=== PATIENT | male | born 1945 | race Caucasian/White ===

== ENCOUNTER 2020-07-11 05:05 | Inpatient (IN) | payer OTHER ==
[~2020-07-11] VITALS: Ht 185.4 cm; Wt 99.4 kg
--- NOTE | 2020-07-11 05:07 | NUR ---
PT BIBRA FROM [facility] C/O SOB. PER RA O2 SAT 85% +HEMATURIA NOTED. PT PLACED IN BED 8 ON POTATO LOADER AND PULSE OX. HR NOTED TO BE IN THE 130'S AFIB. RT AT BEDSIDE; RHONCHI HEARD UPON AUSCULTATION. PT PLACED ON SIMV 12,TV 450, 02 60, PEEP 5. PT HAS A JULIO PICC LINE, G TUBE, RECTAL TUBE, AND GARG CATH. NOTED HEMATURIA IN GARG CATH. AT BEDSIDE FOR EVAL, AWAITING PAULINO
--- NOTE | 2020-07-11 05:16 | NUR ---
PT GARG IRRIGATED, BLOOD CLOTS NOTED.
[2020-07-11] MEDS ORDERED: VANCOMYCIN 1 GM in IV D5W 250 ML IV ONE (05:30)
[2020-07-11] MEDS ORDERED: PIPERACILLIN /TAZOBACTAM 3.375 G in IV D5W 50 ML IV ONE (05:30)
[2020-07-11] MEDS ORDERED: DILTIAZEM HCL 50 MG IV IV ONE (05:30)
[2020-07-11] MEDS ORDERED: DILTIAZEM HCL 50 MG IV ONE (05:33)
--- NOTE | 2020-07-11 05:33 | NUR ---
TILE HELPER AT BEDSIDE FOR BLOOD WORK. UNABLE TO DRAW FROM PICC LINE.
[2020-07-11] MEDS ORDERED: VANCOMYCIN 1 GM VIAL ONE (05:35)
[2020-07-11] MEDS ORDERED: PIPERACILLIN /TAZOBACTAM 3.375 G VIAL IV ONE (05:35)
[2020-07-11 05:57] LABS: BASOPHILS # (AUTO) 0.1 /CMM (0.0-0.2); BASOPHILS % (AUTO) 0.7 % (0.0-2.0); EOSINOPHILS % (AUTO) 3.3 % (0.0-6.0); HEMATOCRIT 29 % (39-51); HEMOGLOBIN 9.2 g/dL (13.5-17.5); LYMPHOCYTES # (AUTO) 4.4 /CMM (0.8-4.8); LYMPHOCYTES % (AUTO) 24.2 % (20.0-44.0); MEAN CORPUSCULAR HGB CONC 32 g/dl (31.0-36.0); MEAN CORPUSCULAR VOLUME 89 fL (80-96); MONOCYTES # (AUTO) 1.1 /CMM (0.1-1.30); MONOCYTES % (AUTO) 6.2 % (2.0-12.0); NEUTROPHILS % (AUTO) 65.6 % (43.0-81.0); PLATELET COUNT (AUTO) 267 /CMM (150-450); RED BLOOD CELL COUNT(AUTO) 3.24 MIL/uL (4.5-6.0); WHITE BLOOD COUNT (AUTO) 18.3 K/uL (4.3-11.0)
--- NOTE | 2020-07-11 05:58 | NUR ---
LOYDAID SWABBED, SENT TO LAB.
[2020-07-11 06:08] LABS: CALCIUM, SERUM 9.3 mg/dL (8.5-10.1); CARBON DIOXIDE 34 mmol/L (21-32); CHLORIDE 102 mmol/L (98-107); CREATININE 0.8 mg/dL (0.6-1.3); GLUCOSE 184 mg/dL (74-106); POTASSIUM 3.5 mmol/L (3.5-5.1); SODIUM SERUM 143 mmol/L (136-145); UREA NITROGEN, BLOOD 20 mg/dL (7-18)
[2020-07-11 06:20] LABS: ALANINE AMINOTRANSFERASE 25 U/L (12-78); ALKALINE PHOSPHATASE 123 U/L (46-116); ASPARTATE AMINOTRANSFERASE 23 U/L (15-37); B-TYPE NATRIURETIC PEPTIDE 2895 PG/ML (0-125); BILIRUBIN,DIRECT 0.1 mg/dL (0.0-0.2); BILIRUBIN,TOTAL 0.4 mg/dL (0.2-1.0); TOTAL PROTEIN, SERUM 7.1 g/dL (6.4-8.2)
--- NOTE | 2020-07-11 06:31 | NUR ---
RT pt placed on mechanical vent with settings from facility. fio2 increased due to desaturation. julito villalobos 8. alarms on and audible. ambu bag at bedside. thick yellow, pink tinged secretions suctioned via trach. will endorse to oncoming shift.
--- NOTE | 2020-07-11 06:38 | NUR ---
ER MD AT BEDSIDE FOR EVAL. PT REMAINS ON AGRONOMY LOCATION MANAGER AND PULSE OX. HR DECREASE FROM 130'S TO 107.
--- NOTE | 2020-07-11 06:42 | NUR ---
GARG CATH IRRIGATED AGAIN, BRIGHT RED COLOR NOTED.
--- NOTE | 2020-07-11 06:55 | NUR ---
URINE SAMPLE COLLECTED, SENT TO LAB.
[2020-07-11] MEDS ORDERED: DEXTROSE 50%-WATER 50 ML DISP.SYRIN IV PRN ×2 (07:30→11:00)
[2020-07-11] MEDS ORDERED: MAGNESIUM HYDROXIDE 30 ML UDC PO PRN (07:30)
[2020-07-11] MEDS ORDERED: ACETAMINOPHEN 325 MG TABLET PO PRN ×2 (07:30→11:00)
[2020-07-11] MEDS ORDERED: MAG HYDROX/AL HYDROX/SIMETH 30 ML UDC PO PRN (07:30)
[2020-07-11] MEDS ORDERED: ONDANSETRON HCL/PF 4 MG/2 ML VIAL IVP PRN (07:30)
[2020-07-11] MEDS ORDERED: CLONIDINE HCL 0.1 MG TABLET PO PRN (07:30)
[2020-07-11] MEDS ORDERED: Z GUARD REMEDY 2 OZ OINT TP PRN (07:30)
[2020-07-11 07:35] LABS: ABG BASE EXCESS 5.7 mmol/L; ABG OXYGEN SATURATION 94.7 % (92.0-98.5); ABG PCO2 42.6 mmHg (35.0-45.0); ABG PH 7.465 (7.350-7.450); ABG PO2 78.4 mmHg (75.0-100.0); AaDO2 302.5 mmHg; COHb 0.3 % (0.5-1.5); MetHb 0.1 % (0.0-1.5); O2Hb 94.3 % (94.0-97.0); SITE, ABG Right Radial
[2020-07-11] MEDS ORDERED: OLME1TAB88 PO (07:55)
[2020-07-11] MEDS ORDERED: ROSU20TA32 PO (07:55)
[2020-07-11] MEDS ORDERED: CHOL200010 PO (07:55)
[2020-07-11] MEDS ORDERED: CARV25TA2 PO (07:55)
[2020-07-11] MEDS ORDERED: PANT40TA49 PO (07:55)
[2020-07-11] MEDS ORDERED: ALEN70TA80 PO (07:55)
[2020-07-11] MEDS ORDERED: METF-442 PO (07:55)
[2020-07-11] MEDS ORDERED: BENEP GT (08:11)
[2020-07-11] MEDS ORDERED: INSU100V39 SQ (08:11)
[2020-07-11] MEDS ORDERED: FLUD0.1T GT (08:11)
[2020-07-11] MEDS ORDERED: MIDO2.5T GT (08:11)
[2020-07-11] MEDS ORDERED: ACET325T53 GT (08:11)
[2020-07-11] MEDS ORDERED: ATOR80TA GT (08:11)
[2020-07-11] MEDS ORDERED: LACT1CAP25 PO (08:11)
[2020-07-11] MEDS ORDERED: NS C250O2 GT (08:11)
[2020-07-11] MEDS ORDERED: CLON1TAB12 GT (08:11)
[2020-07-11] MEDS ORDERED: CHLO473M3 MM (08:11)
[2020-07-11] MEDS ORDERED: ASCO500C17 GT (08:11)
[2020-07-11] MEDS ORDERED: INSU100V7 SQ (08:11)
[2020-07-11] MEDS ORDERED: METO-295 GT (08:11)
[2020-07-11] MEDS ORDERED: MULT-439 GT (08:11)
[2020-07-11] MEDS ORDERED: ALBU8.5H8 IH (08:11)
[2020-07-11] MEDS ORDERED: QUET50TA GT (08:11)
[2020-07-11] MEDS ORDERED: AMIO200T5 GT (08:11)
[2020-07-11] MEDS ORDERED: FURO-144 GT (08:11)
[2020-07-11 08:26] LABS: BILIRUBIN,URINE NEGATIVE (NEGATIVE); COLOR,URINE RED (YELLOW); LEUKOCYTE ESTERASE ,URINE MODERATE (NEGATIVE); NITRITE, URINE POSITIVE (NEGATIVE); PH,URINE 6.5 (5.0-8.0); PROTEIN,URINE >=300 mg/dl (NEGATIVE); UGLUCOSE NEGATIVE (NEGATIVE)
[2020-07-11 08:48] LABS: RBC,URINE TOO NUMEROUS TO COUN /HPF (0-2)
[2020-07-11 08:49] LABS: BACTERIA,URINE Rare /HPF (None Seen); SQUAMOUS EPITHELIAL CELL,UR Few /HPF (None Seen)
--- NOTE | 2020-07-11 08:53 | NUR ---
negative rapid covid result called by lab.
--- NOTE | 2020-07-11 09:22 | NUR ---
dr green talking to dr pedersen.
--- NOTE | 2020-07-11 09:44 | NUR ---
room 118-2
--- NOTE | 2020-07-11 09:51 | NUR ---
report given to Silvino YI for tricia
--- NOTE | 2020-07-11 10:02 | NUR ---
wheeled patient via gurney accompanied by RN, RT and emt in no distress. RN at bedside to assume care.
--- NOTE | 2020-07-11 10:10 | NUR ---
DIGITIZER NOTE RECEIVED REPORT FROM EMPLOYEE RELATIONS MANAGER JESUS. PATIENT IS IN BED WITH HOB AT SEMI FOWLERS POSITION. PATIENT IS AOX2. VENT/TRACH ARE IN PLACE AND PATIENT HAS NO SIGNS OF DISTRESS. CONTROLLED AFIB NOTED ON MONITOR. MEPILEX APPLIED TO SACRAL WOUND. JULIO MIDLINE IS PATENT, INTACT, AND HAS NO SIGNS OF INFILTRATION. BED IS LOCKED IN THE LOWEST POSITION, CALL JOSÉ WITHIN REACH, AND ALL HOSPITAL SAFETY PRECAUTIONS ARE BEING FOLLOWED. WILL CONTINUE TO MONITOR.
[2020-07-11] MEDS ORDERED: PIPERACILLIN /TAZOBACTAM 3.375 G in IV D5W 50 ML IV SCH (11:00)
[2020-07-11] MEDS ORDERED: INSULIN REGULAR, HUMAN 100 UNIT/ML 3 ML VIAL SQ PRN (11:00)
[2020-07-11 11:01] LABS: THYROID STIMULATING HORMONE 6.898 uIU/mL (0.358-3.74)
[2020-07-11 12:00] VITALS: BP 119/69
[2020-07-11] MEDS ORDERED: BLOOD SUGAR DIAGNOSTIC 1 EACH STRIP IN SCH (12:00)
[2020-07-11] MEDS ORDERED: ALBUTEROL FS 2.5 MG/0.5 ML VIAL.NEB NEB PRN (12:00)
[2020-07-11] MEDS: BLOOD SUGAR DIAGNOSTIC 1 EACH STRIP VI SCH ×4 (12:00→21:32)
[2020-07-11] MEDS ORDERED: PIPERACILLIN /TAZOBACTAM 3.375 G in IV D5W 100 ML IV SCH (12:00)
[2020-07-11] MEDS ORDERED: METOCLOPRAMIDE HCL 10 MG TABLET GT PRN (12:00)
[2020-07-11] MEDS: *INSULIN REGULAR(HUMULIN R)HUM 100 UNIT/ML VIAL SQ PRN ×3 (12:45→21:33)
[2020-07-11] MEDS: FLUDROCORTISONE 0.1 MG TABLET GT SCH (13:23)
[2020-07-11] MEDS: LACTOBACILLUS RHAMNOSUS GG 1 EACH CAP.SPRINK GT SCH (13:24)
[2020-07-11] MEDS: ZOSYN IVPB 3.375 G in IV D5W 50ml IV SCH ×3 (13:24→23:07)
[2020-07-11] MEDS: MULTIVIT W/MINERALS 1 TAB TABLET GT SCH (13:24)
[2020-07-11] MEDS: FUROSEMIDE 40 MG/4 ML VIAL IV SCH ×2 (13:24→17:06)
[2020-07-11] MEDS: AMIODARONE HCL 200 MG TABLET GT SCH ×2 (13:24→20:31)
[2020-07-11] MEDS: VANCOMYCIN 1 GM in IV D5W 250 ML IV SCH ×2 (14:46→21:32)
[2020-07-11] MEDS: VITAL AF 1.2 1,000 ML BOTTLE GT PRN (15:38)
[2020-07-11 16:00] VITALS: BP 122/68
[2020-07-11] MEDS: APIXABAN 5 MG TABLET PO SCH (17:00)
--- NOTE | 2020-07-11 17:07 | NUR ---
FILLER WIPER NOTE HELD ELIQUIS DUE TO HEMATURIA.
[2020-07-11 17:37] LABS: VENT MODE, BG SIMV 12 450 PS18 60% +5
--- NOTE | 2020-07-11 19:05 | NUR ---
RECEIVED PT ON BED AWAKE A/O X2 CAN ANSWER YES OR NO ABLE TO TELL NEEDS VIA NEEDS BOARDS AVAILABLE AT BEDSIDE, ON TRACH/VENT SETTING PER MD, FIO2 60% SPO2 97% NO ACUTE RESP DISTRESS NOTED, NO PAIN NOTED AT THIS TIME, TELE MONITOR READS CONTROLLED AFIB HR 82, HAVE GTUBE ON PLACE PLACEMNET CHECKED AND CLAMPED, HAVE GARG CATHETER WITH RED TINGED URINE DRAINING VIA GRAVITY MD IS AWARE, HAVE RECTAL TUBE ON PLACE PT HAVE JULIO MIDLINE C D I, PATENT AND FLUSHED, BED ON LOWEST POSITION AND LOCKED SIDE RAILS UP X2 CALL LIGHT WITHIN REACH WILL CONT TO MONITOR
--- NOTE | 2020-07-11 19:20 | NUR ---
RN CLOSING NOTE PATIENT IS IN BED WITH HOB AT SEMI FOWLERS POSITION. VENT/TRACH ARE IN PLACE WITH NO SIGNS OF LABORED BREATHING. SACRAL WOUND IS NOTED. GTUBE IN PLACE. GARG CATHETER AND RECTAL TUBE ARE IN PLACE. . JULIO MIDLINE IS PATENT, INTACT, AND HAS NO SIGNS OF INFILTRATION. BED IS LOCKED IN THE LOWEST POSITION, CALL JOSÉ WITHIN REACH, 3 GUARD RAILS RAISED, AND ALL HOSPITAL SAFETY PRECAUTIONS ARE BEING FOLLOWED. ENDORSED TO GRE INSTRUCTOR RN.
[2020-07-11 20:00] VITALS: BP 114/60
[2020-07-11] MEDS: MIDODRINE HCL (5MG) 5 MG TABLET GT SCH (20:32)
[2020-07-11] MEDS: ATORVASTATIN 40 MG TABLET GT SCH (21:32)
[2020-07-11] MEDS: INSULIN GLARGINE, 100 UNIT/ML CARTRIDGE SQ SCH (21:33)
[2020-07-11 22:38] LABS: BILIRUBIN,URINE NEGATIVE (NEGATIVE); COLOR,URINE RED (YELLOW); LEUKOCYTE ESTERASE ,URINE TRACE (NEGATIVE); NITRITE, URINE NEGATIVE (NEGATIVE); PROTEIN,URINE 30 mg/dl (NEGATIVE); UGLUCOSE NEGATIVE (NEGATIVE); UROBILINOGEN,URINE 0.2 EU/dL (0.2)
[2020-07-11 22:40] LABS: BACTERIA,URINE Few /HPF (None Seen); RBC,URINE TOO NUMEROUS TO COUN /HPF (0-2); SQUAMOUS EPITHELIAL CELL,UR Few /HPF (None Seen)
[2020-07-12] VITALS: BP 123/65
[2020-07-12] MEDS: clonazePAM 1 MG TABLET GT PRN ×2 (00:27→18:58)
[2020-07-12 04:00] VITALS: BP 108/58
[2020-07-12] MEDS: ZOSYN IVPB 3.375 G in IV D5W 50ml IV SCH ×4 (05:16→23:32)
[2020-07-12 06:00] LABS: BASOPHILS # (AUTO) 0.1 /CMM (0.0-0.2); BASOPHILS % (AUTO) 1.1 % (0.0-2.0); EOSINOPHILS % (AUTO) 5.6 % (0.0-6.0); HEMATOCRIT 25 % (39-51); HEMOGLOBIN 8.1 g/dL (13.5-17.5); LYMPHOCYTES # (AUTO) 1.8 /CMM (0.8-4.8); LYMPHOCYTES % (AUTO) 17.1 % (20.0-44.0); MEAN CORPUSCULAR HGB CONC 33 g/dl (31.0-36.0); MEAN CORPUSCULAR VOLUME 90 fL (80-96); MONOCYTES # (AUTO) 0.7 /CMM (0.1-1.30); MONOCYTES % (AUTO) 7.1 % (2.0-12.0); NEUTROPHILS # (AUTO) 7.1 /CMM (1.8-8.9); NEUTROPHILS % (AUTO) 69.1 % (43.0-81.0); PLATELET COUNT (AUTO) 211 /CMM (150-450); WHITE BLOOD COUNT (AUTO) 10.2 K/uL (4.3-11.0)
[2020-07-12 06:34] LABS: CALCIUM, SERUM 9.4 mg/dL (8.5-10.1); CREATININE 0.8 mg/dL (0.6-1.3); MAGNESIUM 1.8 mg/dL (1.8-2.4); PHOSPHORUS 2.9 mg/dL (2.5-4.9)
--- NOTE | 2020-07-12 06:54 | NUR ---
PT ON BED ASLEEP EASY TO WAKE NO SIGN AND SYMPTOMS OF DISTRESS NO PAIN COMPLAINED STILL ON TRACH VENT SETTING PER MD FIO2 60% SPO2 98% NO SIGNIFICANT CHANGES ON CONDITION NOTED, HEMATURIA ON URINE STILL NOTED, ALL NEEDS ATTENDED WOUND TREATMENT DONE, STILL ON TELE WITH READING AFIB CONTROLLED 70'S BED ON LOWEST POSITION AND LOCKED SIDE RAILS UP X2 CALL LIGHT WITHIN REACH, VANCOMYCIN NOTE YET GIVEN DUE TO VANCOMYCIN TROUGH RESULT NOT YET RELEASE WILL ENDORSED TO AM SHIFT NURSE
--- NOTE | 2020-07-12 07:30 | NUR ---
RN OPENING NOTE RECEIVED PATIENT IN BED WITH HOB AT SEMI FOWLERS POSITION. PATIENT IS CURRENTLY AOX2. VENT/TRACH IS APPLIED WITH APPROPRIATE SETTINGS WITH NO SIGNS OF LABORED BREATHING. CONTROLLED IS NOTED ON THE MONITOR. GTUBE IS IN PLACE RUNNING APPROPRIATE FEEDING AT THE INTENDED RATE. SACRAL WOUND IS NOTED WITH DRESSING APPLIED. JULIO PICC IS PATENT, INTACT, AND HAS NO SIGNS OF INFILTRATION. GARG CATHETER AND RECTAL TUBE ARE IN PLACE. BED IS LOCKED IN THE LOWEST POSITION, CALL JOSÉ WITHIN REACH, 3 GUARD RAILS RAISED AND ALL HOSPITAL SAFETY PRECAUTIONS ARE BEING FOLLOWED. WILL CONTINUE TO MONITOR THROUGHOUT SHIFT.
[2020-07-12] MEDS: INSULIN REGULAR, HUMAN 100 UNIT/ML 3 ML VIAL SQ PRN ×2 (07:33→11:22)
[2020-07-12] MEDS: VANCOMYCIN 1 GM in IV D5W 250 ML IV SCH ×3 (07:35→23:32)
--- NOTE | 2020-07-12 07:35 | NUR ---
PLANE TENDER NOTE SPOKE WITH PHARMACY IN REGARDS TO VANCO TROUGH OF 20. ADVISED TO HOLD. HOLDING MEDICATION.
--- NOTE | 2020-07-12 07:45 | NUR ---
REGIONAL CONSTRUCTION MANAGER NOTE DVT STOCKINGS APPLIED. WILL CONTINUE TO MONITOR.
[2020-07-12] MEDS: BLOOD SUGAR DIAGNOSTIC 1 EACH STRIP VI SCH ×4 (07:48→22:03)
[2020-07-12 08:00] VITALS: BP 129/63
[2020-07-12] MEDS: MULTIVIT W/MINERALS 1 TAB TABLET GT SCH (08:10)
[2020-07-12] MEDS: AMIODARONE HCL 200 MG TABLET GT SCH ×2 (08:11→20:31)
[2020-07-12] MEDS: MIDODRINE HCL (5MG) 5 MG TABLET GT SCH ×2 (08:12→20:31)
[2020-07-12] MEDS: LACTOBACILLUS RHAMNOSUS GG 1 EACH CAP.SPRINK GT SCH (08:12)
[2020-07-12] MEDS: ASCORBIC ACID 500 MG TABLET GT SCH (08:13)
[2020-07-12] MEDS: APIXABAN 5 MG TABLET PO SCH (08:13)
[2020-07-12] MEDS: FUROSEMIDE 40 MG/4 ML VIAL IV SCH ×2 (08:13→17:25)
--- NOTE | 2020-07-12 08:15 | NUR ---
DRUG DEPARTMENT WORKER NOTE MIDODRINE HELD DUE TO SBP OF 129. ELIQUIS HELD DUE TO HEMATURIA. WILL CONTINUE TO MONITOR.
[2020-07-12] MEDS: FLUDROCORTISONE 0.1 MG TABLET GT SCH (08:16)
[2020-07-12] MEDS: PROSOURCE / PROSTAT (PYXIS) 30 ML UDC GT SCH (08:33)
[2020-07-12] MEDS ORDERED: FUROSEMIDE 40 MG TABLET GT SCH (09:00)
[2020-07-12] MEDS ORDERED: POTASSIUM CHLORIDE 20 MEQ TAB.PRT.SR PO SCH (10:00)
[2020-07-12] MEDS: POTASSIUM CHLORIDE 20 MEQ POWDER PACKET GT SCH ×2 (10:52→12:15)
--- NOTE | 2020-07-12 11:47 | NUR ---
BOOKS SALESPERSON NOTE INCREASED VITAL 1.2 TO 65ML/HR PER MD ORDER. WILL CONTINUE TO MONITOR.
[2020-07-12 12:00] VITALS: BP 124/62
--- NOTE | 2020-07-12 12:10 | NUR ---
FULL STACK ENGINEER NOTE SPOKE TO PHARMACY IN REGARDS TO NEW VANCO ORDER WITH TROUGH OF 20. OKAY TO ADMINISTER.
--- NOTE | 2020-07-12 13:15 | NUR ---
BRIDGE WORKER NOTE DR. VILLA NOTIFIED OF CDIFF RESULT. VANCOMYCIN VIA GTUBE HAS BEEN ORDERED.
[2020-07-12 16:00] VITALS: BP 131/63
[2020-07-12] MEDS: VANCOMYCIN HCL 125 MG/2.5 ML ORAL.SUSP GT SCH ×2 (17:25→23:31)
[2020-07-12] MEDS: *INSULIN REGULAR(HUMULIN R)HUM 100 UNIT/ML VIAL SQ PRN ×2 (17:27→22:04)
--- NOTE | 2020-07-12 18:36 | NUR ---
RN CLOSING NOTE PATIENT IS IN BED WITH HOB AT SEMI FOWLERS POSITION. PATIENT IS AOX3 AND ABLE TO MOUTH WORDS. VENT/TRACH ARE IN PLACE WITH NO SIGNS OF LABORED BREATHING. MONITOR SHOWS CONTROLLED AFIB. RECTAL TUBE AND GARG CATHETER ARE IN PLACE. HEMATURIA NOTED. SACRAL DTI HAS CLEAN DRESSING APPLIED. GTUBE IS IN PLACE WITH APPROPRIATE FEEDING RUNNING. JULIO PICC IS PATENT, INTACT, AND HAS NO SIGNS OF INFILTRATION. BED IS LOCKED IN THE LOWEST POSITION, CALL JOSÉ WITHIN REACH, 3 GUARD RAILS RAISED, AND ALL HOSPITAL SAFETY PRECAUTIONS ARE BEING FOLLOWED. WILL ENDORSE TO PUBLIC SERVICES ASSISTANT RN.
--- NOTE | 2020-07-12 19:36 | NUR ---
RN NOTES PATIENT IN BED HOB ELEVATED. A/OX3, ABLE TO MOUTH WORDS. TELE MONITOR ON, A-FIB CONTROLLED. RECTAL TUBE INTACT. GARG CATH INTACT DRAINING HEMATURIA TO GRAVITY. WITH G-TUBE, RUNNING VITAL @65ML/HR. JULIO PATENT AND INTACT, FLUSHED WITH NS. BED LOCKED AND IN LOWEST POSITION. SAFETY MEASURES IN PLACE. CALL LIGHT WITHIN REACH. WILL CONTINUE TO MONITOR.
[2020-07-12 20:00] VITALS: BP 124/71
[2020-07-12] MEDS: HYDROCODONE/APAP 5/325MG TABLET PO PRN (20:26)
[2020-07-12] MEDS: ATORVASTATIN 40 MG TABLET GT SCH (22:03)
[2020-07-12] MEDS: INSULIN GLARGINE, 100 UNIT/ML CARTRIDGE SQ SCH (22:05)
[2020-07-13] VITALS (10 sets, daily range): BP systolic 104–154; BP diastolic 58–94
[2020-07-13] MEDS: HYDROCODONE/APAP 5/325MG TABLET PO PRN (00:46)
[2020-07-13] MEDS: VITAL AF 1.2 1,000 ML BOTTLE GT PRN (04:47)
[2020-07-13] MEDS: VANCOMYCIN HCL 125 MG/2.5 ML ORAL.SUSP GT SCH ×4 (05:35→23:05)
[2020-07-13] MEDS: ZOSYN IVPB 3.375 G in IV D5W 50ml IV SCH ×4 (05:35→23:06)
[2020-07-13 05:57] LABS: BASOPHILS # (AUTO) 0.1 /CMM (0.0-0.2); BASOPHILS % (AUTO) 0.9 % (0.0-2.0); EOSINOPHILS % (AUTO) 7.1 % (0.0-6.0); HEMATOCRIT 23 % (39-51); HEMOGLOBIN 7.7 g/dL (13.5-17.5); LYMPHOCYTES # (AUTO) 1.4 /CMM (0.8-4.8); LYMPHOCYTES % (AUTO) 15.3 % (20.0-44.0); MEAN CORPUSCULAR HGB CONC 33 g/dl (31.0-36.0); MEAN CORPUSCULAR VOLUME 89 fL (80-96); MONOCYTES # (AUTO) 0.7 /CMM (0.1-1.30); NEUTROPHILS # (AUTO) 6.2 /CMM (1.8-8.9); NEUTROPHILS % (AUTO) 68.7 % (43.0-81.0); PLATELET COUNT (AUTO) 206 /CMM (150-450); RED BLOOD CELL COUNT(AUTO) 2.62 MIL/uL (4.5-6.0)
[2020-07-13] MEDS: clonazePAM 1 MG TABLET GT PRN (06:58)
--- NOTE | 2020-07-13 07:45 | NUR ---
RN OPENING NOTE PATIENT IS IN BED WITH HOB AT SEMI FOWLERS POSITION. PATIENT IS AOX3 AND MOUTHS WORDS. VENT/TRACH ARE IN PLACE. AFIB CONTROLLED IS NOTED ON MONITOR. GARG CATHETER AND RECTAL TUBE ARE IN PLACE. SACRAL DTI NOTED. GTUBE IS IN PLACE WITH APPROPRIATE FEEDING RUNNING. JULIO PICC LINE IS PATENT, INTACT, AND HAS NO SIGNS OF INFILTRATION. BED IS LOCKED IN THE LOWEST POSITION, CALL JOSÉ WITHIN REACH, 3 GUARD RAILS RAISED, AND ALL HOSPITAL SAFETY PRECAUTIONS ARE BEING FOLLOWED. WILL CONTINUE TO MONITOR THROUGHOUT SHIFT.
--- NOTE | 2020-07-13 07:48 | NUR ---
RN NOTES PATIENT IN BED HOB ELEVATED. A/OX3, ABLE TO MOUTH WORDS. TELE MONITOR ON, A-FIB CONTROLLED. RECTAL TUBE INTACT. GARG CATH INTACT DRAINING HEMATURIA TO GRAVITY 1350 CC OUTPUT. WITH G-TUBE, RUNNING VITAL @65ML/HR. JULIO PATENT AND INTACT, FLUSHED WITH NS. BED LOCKED AND IN LOWEST POSITION. SAFETY MEASURES IN PLACE. CALL LIGHT WITHIN REACH. ENDORSED TO ONCOMING SHIFT.
[2020-07-13] MEDS: INSULIN REGULAR, HUMAN 100 UNIT/ML 3 ML VIAL SQ PRN ×4 (07:50→23:47)
[2020-07-13] MEDS: BLOOD SUGAR DIAGNOSTIC 1 EACH STRIP VI SCH (07:54)
[2020-07-13] MEDS: MULTIVIT W/MINERALS 1 TAB TABLET GT SCH (08:06)
[2020-07-13] MEDS: LACTOBACILLUS RHAMNOSUS GG 1 EACH CAP.SPRINK GT SCH (08:06)
[2020-07-13] MEDS: FLUDROCORTISONE 0.1 MG TABLET GT SCH (08:06)
[2020-07-13] MEDS: ASCORBIC ACID 500 MG TABLET GT SCH (08:06)
[2020-07-13] MEDS: FUROSEMIDE 40 MG/4 ML VIAL IV SCH ×2 (08:07→16:14)
[2020-07-13] MEDS: MIDODRINE HCL (5MG) 5 MG TABLET GT SCH (08:32)
[2020-07-13] MEDS: AMIODARONE HCL 200 MG TABLET GT SCH ×2 (08:32→20:51)
--- NOTE | 2020-07-13 08:33 | NUR ---
HYDRAULIC REPAIRER NOTE MIDODRINE HELD FOR BP OF 154/94
[2020-07-13] MEDS: PROSOURCE / PROSTAT (PYXIS) 30 ML UDC GT SCH (08:40)
[2020-07-13] MEDS ORDERED: ALPRAZOLAM 0.25 MG TABLET GT PRN (09:00)
--- NOTE | 2020-07-13 09:00 | NUR ---
MANAGER UNDERWRITING NOTE DOCTOR ALLEN ADVISED TO SWITCH ACCU CHECK TO Q6H. WILL PLACE ORDER.
--- NOTE | 2020-07-13 09:40 | NUR ---
RT Pt changed to Shiley 8 XLT Distal cuffed per Dr. Alexandrea hodgson. Equal bilateral breathe sounds and chest rise noted. No SOB or respiratory distress noted. Addendum: 07/13/20 at 1019 by ROQUE RUST RT Amended: Links added.
--- NOTE | 2020-07-13 11:18 | NUR ---
WOUND CARE CONSULT: REVIEWED CHART, NURSING DOCUMENTATION AND PHOTOS WHICH INDICATE NECROTIC SACRAL PRESSURE ULCER, PRESENT ON ADMISSION. RECOMMEND SURGICAL CONSULT. DR SYDNEY VILLAGRAN NOTIFIED OF CONSULT REQUEST. PT IS ON SEGUNDO ISOFLEX LOW AIRLOSS BED. RECOMMENDATIONS MADE FOR SKIN PROTECTION AND WOUND CARE. DISCUSSED WITH NURSING STAFF. MD IN AGREEMENT WITH PLAN OF CARE.
[2020-07-13 12:43] LABS: CALCIUM, SERUM 8.4 mg/dL (8.5-10.1); CREATININE 0.7 mg/dL (0.6-1.3); POTASSIUM 3.2 mmol/L (3.5-5.1)
[2020-07-13] MEDS: DAKINS QUARTER STRENGTH (0.125%) 480 ML BOTTLE TOP SCH (13:18)
[2020-07-13] MEDS ORDERED: IOHEXOL-350 100 ML VIAL IV ONE (13:38)
[2020-07-13] MEDS ORDERED: IV NS 0.9% 250 ML IV ONE (13:39)
[2020-07-13] MEDS ORDERED: BLOOD SUGAR DIAGNOSTIC 1 EACH STRIP IN SCH ×2 (14:00)
--- NOTE | 2020-07-13 14:15 | NUR ---
CHAIR INSPECTOR NOTE NOTIFIED DR. VILLA OF AORTIC ANEURISM AND AORTIC DISECTION FOUND ON PULMONARY ANGIOGRAM.
[2020-07-13] MEDS ORDERED: FUROSEMIDE 40 MG/4 ML VIAL IV ONE (16:00)
[2020-07-13] MEDS ORDERED: DEXTROSE 50%-WATER 50 ML DISP.SYRIN IV PRN (16:00)
[2020-07-13] MEDS: POTASSIUM CL. PREMIX PERIPHER. 50 ML IV SCH ×2 (16:13→17:14)
[2020-07-13] MEDS: ENOXAPARIN SODIUM 100 MG/ML DISP.SYRIN SQ SCH (17:15)
[2020-07-13] MEDS: BLOOD SUGAR DIAGNOSTIC 1 EACH STRIP IN SCH ×2 (17:36→23:05)
--- NOTE | 2020-07-13 19:03 | NUR ---
RN CLOSING NOTE PATIENT IS IN BED, CLEAN, WITH HOB AT SEMI FOWLERS POSITION. PATIENT IS AOX3 AND MOUTHS WORDS. VENT/TRACH ARE IN PLACE. AFIB CONTROLLED IS NOTED ON MONITOR. GARG CATHETER AND RECTAL TUBE ARE IN PLACE. SACRAL DTI NOTED WITH APPROPRIATE DRESSING.. GTUBE IS IN PLACE WITH APPROPRIATE FEEDING RUNNING. JULIO PICC LINE IS PATENT, INTACT, AND HAS NO SIGNS OF INFILTRATION. BED IS LOCKED IN THE LOWEST POSITION, CALL JOSÉ WITHIN REACH, 3 GUARD RAILS RAISED, AND ALL HOSPITAL SAFETY PRECAUTIONS ARE BEING FOLLOWED. WILL ENDORSE TO REPORT CHECKER RN.
--- NOTE | 2020-07-13 19:35 | NUR ---
RN OPENING NOTES RECEIVED PT IN BED. A/O X3, MOUTHS WORDS. ABLE TO MAKE NEEDS KNOWN, USES COMMUNICATION SHEET. TRACH TO VENT. SHILEY 8 XLT, AC 12 TV 450 FIO2 40% PEEP 5. TOLERATING WELL SATURATION IS 97% AT THIS TIME. NO SOB OR RESP DISTRESS NOTED. ON TELE MONITORING PT PRESENTS WITH AFIB CONTROLLED, BASELINE TO PT. HR IS 85 AT THIS TIME. PT IV SITE, FLUSHED. PT HAS GTUBE RUNNING AT 65CC/HR. AUSCULTATED FOR PLACEMENT. 0 RESIDUAL NOTED. GT FLUSHED. PT HAS GARG CATH DRAINING TO GRAVITY. PINK TINGED NOTED. ISO PRECAUTIONS IN PLACE FOR R/O COVID. NEEDS ATTENDED. NO S/S OF PAIN. SAFETY MEASURES IN PLACE. HOB ELEVATED. BED LOCKED IN LOWEST POSITION, SIDE RAILS UP X2. CALL LIGHT WITHIN REACH. WILL CONT TO CLOSELY MONITOR.
[2020-07-13] MEDS: ATORVASTATIN 40 MG TABLET GT SCH (22:38)
[2020-07-13] MEDS: INSULIN GLARGINE, 100 UNIT/ML CARTRIDGE SQ SCH (23:48)
[2020-07-13] MEDS: ZOLPIDEM TARTRATE 5 MG TABLET GT PRN (23:55)
[2020-07-14] VITALS (8 sets, daily range): BP systolic 113–128; BP diastolic 57–79
[2020-07-14 05:56] LABS: CALCIUM, SERUM 8.9 mg/dL (8.5-10.1); CREATININE 0.7 mg/dL (0.6-1.3)
[2020-07-14] MEDS: BLOOD SUGAR DIAGNOSTIC 1 EACH STRIP IN SCH ×4 (06:14→23:33)
[2020-07-14] MEDS: clonazePAM 1 MG TABLET GT PRN (06:15)
[2020-07-14] MEDS: VANCOMYCIN HCL 125 MG/2.5 ML ORAL.SUSP GT SCH ×4 (06:16→23:39)
[2020-07-14] MEDS: ZOSYN IVPB 3.375 G in IV D5W 50ml IV SCH ×4 (06:16→23:56)
--- NOTE | 2020-07-14 07:30 | NUR ---
RN OPENING NOTES PT IN BED. A/O X3, MOUTHS WORDS. USES COMMUNICATION SHEET. TRACH TO VENT. SHILEY 8 XLT, AC 12 TV 450 FIO2 40% PEEP 5. TOLERATING WELL SATURATION IS 97% AT THIS TIME. NO SOB OR RESP DISTRESS NOTED. PT IV SITE INTACT AND FLUSHED. PT HAS G-TUBE RUNNING AT 65 ML/HR. AUSCULTATED FOR PLACEMENT. 20 RESIDUAL NOTED. GT FLUSHED. PT HAS GARG CATH DRAINING TO GRAVITY. BLOOD IN URINE NOTED. NOTIFIED AND GAVE OK TO CONTINUE LOVENOX DAILY. ISO PRECAUTIONS IN PLACE FOR R/O COVID. SAFETY PRECAUTIONS IMPLEMENTED, BED LOCKED IN LOWEST POSITION, SIDE RAILS UP X2, CALL LIGHT WITHIN REACH. WILL CONTINUE TO MONITOR AND PROVIDE CARE THROUGHOUT SHIFT.
--- NOTE | 2020-07-14 07:38 | NUR ---
RN CLOSING NOTES NO CHANGE IN PT CONDITION. STILL ON SAME VENT SETTINGS, AT THIS TIME. NO SOB OR RESP DISTRESS NOTED. UPON IV SITE NO S/S OF INFILTRATION AT THIS TIME. PT RECTAL TUBE WAS OUT OF PLACE, LEAKING, NEW TUBE PLACED. WOUND TX DONE ORDERED. BED BATH DONE. PT SUCTION ORALLY AND TRACH. NEEDS ATTENDED. NO S/S OF PAIN FLACC SCALE UTILIZED. SAFETY MEASURES IN PLACE. HOB ELEVATED. BED LOCKED IN LOWEST POSITION, SIDE RAILS UP X2. CALL LIGHT WITHIN REACH. WILL CONT TO CLOSELY MONITOR.
[2020-07-14 08:50] LABS: BASOPHILS # (AUTO) 0.1 /CMM (0.0-0.2); BASOPHILS % (AUTO) 1.1 % (0.0-2.0); EOSINOPHILS % (AUTO) 5.2 % (0.0-6.0); HEMATOCRIT 25 % (39-51); HEMOGLOBIN 8.2 g/dL (13.5-17.5); LYMPHOCYTES # (AUTO) 1.4 /CMM (0.8-4.8); LYMPHOCYTES % (AUTO) 15.9 % (20.0-44.0); MEAN CORPUSCULAR HGB CONC 33 g/dl (31.0-36.0); MEAN CORPUSCULAR VOLUME 90 fL (80-96); MONOCYTES # (AUTO) 0.6 /CMM (0.1-1.30); MONOCYTES % (AUTO) 6.9 % (2.0-12.0); NEUTROPHILS # (AUTO) 6.3 /CMM (1.8-8.9); NEUTROPHILS % (AUTO) 70.9 % (43.0-81.0); PLATELET COUNT (AUTO) 193 /CMM (150-450); RED BLOOD CELL COUNT(AUTO) 2.78 MIL/uL (4.5-6.0); WHITE BLOOD COUNT (AUTO) 8.9 K/uL (4.3-11.0)
[2020-07-14] MEDS: AMIODARONE HCL 200 MG TABLET GT SCH ×2 (09:18→20:29)
[2020-07-14] MEDS: LACTOBACILLUS RHAMNOSUS GG 1 EACH CAP.SPRINK GT SCH (09:18)
[2020-07-14] MEDS: MULTIVIT W/MINERALS 1 TAB TABLET GT SCH (09:19)
[2020-07-14] MEDS: FUROSEMIDE 40 MG/4 ML VIAL IV SCH ×2 (09:19→17:38)
[2020-07-14] MEDS: ASCORBIC ACID 500 MG TABLET GT SCH (09:19)
[2020-07-14] MEDS: PROSOURCE / PROSTAT (PYXIS) 30 ML UDC GT SCH (09:20)
[2020-07-14] MEDS: ENOXAPARIN SODIUM 100 MG/ML DISP.SYRIN SQ SCH ×3 (09:31→20:39)
[2020-07-14] MEDS: DAKINS QUARTER STRENGTH (0.125%) 480 ML BOTTLE TOP SCH (09:32)
[2020-07-14] MEDS: POTASSIUM CHLORIDE 20 MEQ TAB.PRT.SR PO SCH ×2 (11:21→11:40)
[2020-07-14] MEDS: INSULIN REGULAR, HUMAN 100 UNIT/ML 3 ML VIAL SQ PRN ×2 (12:19→23:35)
--- NOTE | 2020-07-14 19:07 | NUR ---
RN CLOSING NOTES PT IN BED. A/O X3, MOUTHS WORDS. USES COMMUNICATION SHEET. TRACH TO VENT. SHILEY 8 XLT, AC 12 TV 450 FIO2 40% PEEP 5. TOLERATING WELL SATURATION IS 97% AT THIS TIME. NO SOB OR RESP DISTRESS NOTED. PT IV SITE INTACT AND FLUSHED. PT HAS G-TUBE RUNNING AT 65 ML/HR. AUSCULTATED FOR PLACEMENT. 20 RESIDUAL NOTED. GT FLUSHED. PT HAS GARG CATH DRAINING TO GRAVITY. BLOOD IN URINE NOTED. NOTIFIED AND GAVE OK TO CONTINUE LOVENOX DAILY. ISO PRECAUTIONS IN PLACE FOR R/O COVID. SAFETY PRECAUTIONS IMPLEMENTED, BED LOCKED IN LOWEST POSITION, SIDE RAILS UP X2, CALL LIGHT WITHIN REACH. WILL ENDORSE CARE TO UPCOMING SHIFT.
--- NOTE | 2020-07-14 19:40 | NUR ---
SENIOR SOFTWARE TESTER OPENING NOTES PT IN BED, A/O X3, MOUTHS WORDS, ON MECHANICAL VENT WITH TRACH, TOLERATING SETTINGS WELL, 02> 97% AT THIS TIME, NO SOB/RESP DISTRESS NOTED, IV SITE PATENT AND INTACT, GT IN PLACE, G-TUBE FEEDING RUNNING AT 65 ML/HR, MINIMAL RESIDUAL NOTED, PLACEMENT CHECKED, GARG CATH DRAINING TO GRAVITY, HEMATURIA NOTED, MD AWARE, OK TO CONTINUE LOVENOX DAILY ACCORDING TO PRIOR NURSE, ALL PRECAUTIONS IN PLACE, BED LOCKED IN LOWEST POSITION, SIDE RAILS UP X2, CALL LIGHT WITHIN REACH, WILL CONTINUE TO MONITOR CLOSELY.
[2020-07-14] MEDS: ATORVASTATIN 40 MG TABLET GT SCH (21:33)
[2020-07-14] MEDS: ZOLPIDEM TARTRATE 5 MG TABLET GT PRN (22:18)
[2020-07-14] MEDS: INSULIN GLARGINE, 100 UNIT/ML CARTRIDGE SQ SCH (22:26)
[2020-07-15] VITALS: BP 116/64
[2020-07-15 04:00] VITALS: BP 104/63
[2020-07-15] MEDS: VITAL AF 1.2 1,000 ML BOTTLE GT PRN (05:07)
[2020-07-15] MEDS: VANCOMYCIN HCL 125 MG/2.5 ML ORAL.SUSP GT SCH ×4 (05:07→23:05)
[2020-07-15] MEDS: ZOSYN IVPB 3.375 G in IV D5W 50ml IV SCH ×4 (06:04→23:05)
[2020-07-15] MEDS: BLOOD SUGAR DIAGNOSTIC 1 EACH STRIP IN SCH ×4 (06:04→23:18)
[2020-07-15] MEDS: INSULIN REGULAR, HUMAN 100 UNIT/ML 3 ML VIAL SQ PRN ×3 (06:05→18:42)
[2020-07-15 06:36] LABS: BASOPHILS # (AUTO) 0.1 /CMM (0.0-0.2); BASOPHILS % (AUTO) 1.1 % (0.0-2.0); HEMATOCRIT 26 % (39-51); HEMOGLOBIN 8.6 g/dL (13.5-17.5); LYMPHOCYTES # (AUTO) 1.7 /CMM (0.8-4.8); MEAN CORPUSCULAR HGB CONC 33 g/dl (31.0-36.0); MEAN CORPUSCULAR VOLUME 89 fL (80-96); MONOCYTES # (AUTO) 0.6 /CMM (0.1-1.30); MONOCYTES % (AUTO) 6.7 % (2.0-12.0); NEUTROPHILS # (AUTO) 6.6 /CMM (1.8-8.9); NEUTROPHILS % (AUTO) 69.2 % (43.0-81.0); PLATELET COUNT (AUTO) 228 /CMM (150-450); RED BLOOD CELL COUNT(AUTO) 2.92 MIL/uL (4.5-6.0); WHITE BLOOD COUNT (AUTO) 9.6 K/uL (4.3-11.0)
--- NOTE | 2020-07-15 06:55 | NUR ---
FOOD CASHIER CLOSING NOTES PATIENT IN BED, A/O X3, ON MECHANICAL VENT WITH TRACH, TOLERATING SETTINGS WELL, 02> 96% DURING THE NIGHT, NO SOB/RESP DISTRESS DURING THE NIGHT, GT IN PLACE, G-TUBE FEEDING STARTED AGAIN AT 0400, GARG CATH IN PLACED, DRAINING TO GRAVITY, CONTINUE WITH HEMATURIA, DR VILLA AWARE, WILL HAVE DEBRIDEMENT OF SACRAL WOUND TOMORROW, ALL PRECAUTIONS IN PLACE, BED LOCKED IN LOWEST POSITION, SIDE RAILS UP X2, CALL LIGHT WITHIN REACH, WILL ENDORSE CONTINUITY OF CARE TO ONCOMING NURSE.
--- NOTE | 2020-07-15 07:30 | NUR ---
CASE FILLER OPENING NOTES PT IN BED, A/O X3, MOUTHS WORDS, ON MECHANICAL VENT WITH TRACH, TOLERATING SETTINGS WELL, SP02 98%, NO SOB/RESP DISTRESS NOTE. JULIO PICC LINE SL, FLUSHED X2 EACH PIGTAIL IT WAS DIFFICULT FIRST TIME AROUND , IS PATENT WITH NO SIGNS OF INFECTION, STARTED NS TKO. GT PATENT, G-TUBE FEEDING RUNNING AT 65 ML/HR, 30ML RESIDUAL NOTED, POSITIVE PLACEMENT CHECKED. GARG CATH DRAINING TO GRAVITY, HEMATURIA NOTED, DR VILLA AWARE. OK TO CONTINUE LOVENOX DAILY ACCORDING TO PRIOR NURSE, WILL CONFIRM WITH MD. PT FLEXISEAL LINTACT AND DRAINING FECES TO GRAVITY. ALL SAFETY PRECAUTIONS IN PLACE. WILL CONTINUE TO MONITOR CLOSELY.
[2020-07-15 07:41] LABS: CALCIUM, SERUM 8.8 mg/dL (8.5-10.1); CREATININE 0.7 mg/dL (0.6-1.3); POTASSIUM 3.1 mmol/L (3.5-5.1)
[2020-07-15 08:00] VITALS: BP 101/54
[2020-07-15] MEDS: LACTOBACILLUS RHAMNOSUS GG 1 EACH CAP.SPRINK GT SCH (09:00)
[2020-07-15] MEDS: MULTIVIT W/MINERALS 1 TAB TABLET GT SCH (09:00)
[2020-07-15] MEDS: ENOXAPARIN SODIUM 100 MG/ML DISP.SYRIN SQ SCH ×2 (09:00→09:03)
[2020-07-15] MEDS: FUROSEMIDE 40 MG/4 ML VIAL IV SCH (09:02)
[2020-07-15] MEDS: AMIODARONE HCL 200 MG TABLET GT SCH (09:02)
[2020-07-15] MEDS: ASCORBIC ACID 500 MG TABLET GT SCH (09:02)
[2020-07-15] MEDS: DAKINS QUARTER STRENGTH (0.125%) 480 ML BOTTLE TOP SCH (09:04)
[2020-07-15] MEDS: PROSOURCE / PROSTAT (PYXIS) 30 ML UDC GT SCH ×4 (09:05→17:00)
--- NOTE | 2020-07-15 09:14 | NUR ---
RN NOTE PER DR VILLA, HOLD LOVENOX D/T HEMATURIA. WILL CHANGE TO ELIQUIS
[2020-07-15] MEDS ORDERED: APIXABAN 5 MG TABLET PO SCH (09:30)
[2020-07-15] MEDS ORDERED: POTASSIUM CHLORIDE 20 MEQ TAB.PRT.SR PO ONE (09:30)
--- NOTE | 2020-07-15 09:42 | NUR ---
RN NOTE PER DR VILLA, D/C GARG CATH ONCE HEMATURIA HAS IMPROVED. PINK URINE WARRANTS IMPROVEMENT AND D/C OF GARG CATH
--- NOTE | 2020-07-15 10:00 | NUR ---
RN NOTE PER DR VILLA, JUAN R HINKLE, PT HAS DEBRIDEMENT PROCEDURE TOMORROW 07/16/20. NOT ADMINISTERED
--- NOTE | 2020-07-15 11:20 | NUR ---
DID NOT ADMIN 1030 PROSTAT BECAUSE 0900 WAS GIVEN. WILL GIVE AGAIN AT 1300
[2020-07-15 12:00] VITALS: BP 118/72
[2020-07-15] MEDS: SOD FERRIC GLUC 125 MG in IV NS 0.9% 100 ML IV SCH (15:31)
--- NOTE | 2020-07-15 15:36 | NUR ---
dr. green made aware pt. negative covid will keep on nocovid side.
[2020-07-15 16:00] VITALS: BP 120/58
--- NOTE | 2020-07-15 19:00 | NUR ---
RN NOTE NO CHANGES TO PT STATUS. PT ON VENT SETTINGS PER ORDER, SPO2 98%, NO SIGNS OF RESP DISTRESS OR SOB. PT SACRAL DEBRIDEMENT TOMORROW WILL OCCUR APPROX 1500 - 1800 PER STEEL WORKER. ENDORSED TO ONCOMING RN TO HOLD LOVENOX. PT PSYCH CONSULT GIVEN, MEDS ORDERED PER PSYCHIATRIST. ALL PT SAFETY PRECAUTION IN PLACE. WILL ENDORSE MONCHO TO ONCOMING RN
--- NOTE | 2020-07-15 19:15 | NUR ---
RN NOTE RECEIVED PATIENT IN BED, AO X 3-4, IN NO S/SX OF ACUTE DISTRESS AT THIS TIME. PATIENT ON TRACH CONNECTED TO MECHANICAL VENT WITH SETTINGS PRESCRIBED, TOLERATING WELL, SATURATION IS 98%. AFIB CONTROLLED ON THE MONITOR, HR IS 73. NOTED JULIO PICC LINE, ALL HUBS PATENT AND FLUSHING WELL,NO S/S OF INFECTION. PEG TUBE INTACT, PLACEMENT WAS CHECKED BY ASUCULTATION AND ASPIRATION, WITH TUBE FEEDING OF VITAL AT 65 ML/HR X 18 HOURS. GARG CATHETER CONNECTED TO URINE BAG IN PLACE, DRAINING TO A MODERATE AMOUNT OF RED OUTPUT. ASPIRATION PRECAUTIONS MAINTAINED. SAFETY MEASURES IMPLEMENTED. PATIENT BED ALARM IS ON. HEAD OF BED ELEVATED. BED IS LOCKED, IN LOWEST POSITION AND SIDE RAILS UP. CALL LIGHT WITHIN REACH OF THE PATIENT. WILL CONTINUE TO MONITOR AND REASSESS FOR ANY CHANGES.
[2020-07-15 20:00] VITALS: BP 123/70
[2020-07-15] MEDS: MIRTAZAPINE 15 MG TABLET GT SCH (21:37)
[2020-07-15] MEDS: ATORVASTATIN 40 MG TABLET GT SCH (21:37)
[2020-07-15] MEDS: INSULIN GLARGINE, 100 UNIT/ML CARTRIDGE SQ SCH (23:34)
[2020-07-16] VITALS (7 sets, daily range): BP systolic 98–130; BP diastolic 54–76
[2020-07-16] MEDS: ZOLPIDEM TARTRATE 5 MG TABLET GT PRN (00:13)
--- NOTE | 2020-07-16 05:45 | NUR ---
RN NOTE REPORT GIVEN TO AMALIA YI INCLUDING INFORMATION REGARDING SCHEDULED SACRAL DEBRIDEMENT TODAY 07/16/2020, SIGNED CONSENT AT CHART, ANTICOAGULANTS ON HOLD FOR NOW, ENDORSED LIST OF SUPPLIES NEEDED BY MD FOR THE PROCEDURE, PER ANA MARÍA YI, PROCEDURE MAY BE DONE ANYTIME BETWEEN [id number] 07/16/2020, AO X 3-4, VS STABLE T 98.9, HR 72, R 16, SAT 98%, BP 119/68. TRACH TO MECHANICAL VENT WITH SETTINGS PRESCRIBED. JULIO PICC LINE INTACT WITH NS AT TKO. ONGOING TUBE FEEDING OF VITAL REGULATED AT 65 ML/HR X 18 HOURS. PATIENT TRANSFERRED TO MEDICAL SURGICAL ROOM 304 VIA MEDICAL BED WITH ANA LAURA RT PRESENT. ALL PATIENT BELONGINGS TRANSFERRED WITH THE PATIENT. PATIENT SAFETY AND ASPIRATION PRECAUTIONS MAINTAINED AT ALL TIMES, AMALIA YI RECEIVED THE PATIENT AND WILL CONTINUE CARE.
--- NOTE | 2020-07-16 06:06 | NUR ---
RT PT TRANSPORTED TO ROOM 304 WITH RN. VENT PLUGGED INTO RED OUTLET WITH AMBU BAG AND SPARE TRACH AT BEDSIDE.
[2020-07-16 07:11] LABS: BASOPHILS # (AUTO) 0.1 /CMM (0.0-0.2); EOSINOPHILS % (AUTO) 4.1 % (0.0-6.0); HEMATOCRIT 23 % (39-51); HEMOGLOBIN 7.8 g/dL (13.5-17.5); LYMPHOCYTES # (AUTO) 1.3 /CMM (0.8-4.8); LYMPHOCYTES % (AUTO) 15.3 % (20.0-44.0); MEAN CORPUSCULAR HGB CONC 33 g/dl (31.0-36.0); MEAN CORPUSCULAR VOLUME 89 fL (80-96); MONOCYTES # (AUTO) 0.6 /CMM (0.1-1.30); MONOCYTES % (AUTO) 6.8 % (2.0-12.0); NEUTROPHILS % (AUTO) 72.8 % (43.0-81.0); PLATELET COUNT (AUTO) 198 /CMM (150-450); RED BLOOD CELL COUNT(AUTO) 2.62 MIL/uL (4.5-6.0); WHITE BLOOD COUNT (AUTO) 8.2 K/uL (4.3-11.0)
[2020-07-16] MEDS: ZOSYN IVPB 3.375 G in IV D5W 50ml IV SCH ×4 (07:52→22:13)
[2020-07-16] MEDS: BLOOD SUGAR DIAGNOSTIC 1 EACH STRIP IN SCH ×3 (07:56→18:12)
[2020-07-16] MEDS: VANCOMYCIN HCL 125 MG/2.5 ML ORAL.SUSP GT SCH ×3 (08:00→18:15)
--- NOTE | 2020-07-16 08:00 | NUR ---
PRESS OPERATOR CARBON BLOCKS OPENING NOTES PT IN BED, A/O X3, MOUTHS WORDS, ON MECHANICAL VENT WITH TRACH, TOLERATING SETTINGS WELL, SP02 97%, NO SOB/RESP DISTRESS NOTE. JULIO PICC LINE SL, FLUSHED X2 EACH PIGTAIL, ALL PATENT WITH NO SIGNS OF INFECTION. GT PATENT, G-TUBE FEEDING RUNNING AT 65 ML/HR, POSITIVE PLACEMENT CHECKED. GARG CATH DRAINING TO GRAVITY, HEMATURIA NOTED, DR VILLA AWARE. PT FLEXISEAL INTACT AND DRAINING FECES TO GRAVITY. ALL SAFETY PRECAUTIONS IN PLACE. WILL CONTINUE TO MONITOR CLOSELY.
--- NOTE | 2020-07-16 08:15 | NUR ---
MAIL HANDLERS SUPERVISOR NOTE PT BROUGHT TO FLOOR IN BED, ALERT AND ORIENTED X3 BUT CAN MOUTHS WORDS, ON MECHANICAL VENT WITH TRACH. TOLERATING SETTINGS WELL SP02 100%, NO COMPLAINTS NOTED. JULIO PICC LINE SL IN PLACE AND LAB DRAWN FROM PATIENT THIS AM. GT PATENT, G-TUBE FEEDING RUNNING AT 65 ML/HR POSITIVE PLACEMENT CHECKED. GARG CATH DRAINING TO GRAVITY WITH 150ML OUTPUT, HEMATURIA NOTED, DR VILLA AWARE PER QUALITY ASSURANCE PROJECT MANAGER NURSE. PT FLEXISEAL LINTACT AND DRAINING FECES TO GRAVITY. ALL SAFETY PRECAUTIONS IN PLACE. WILL CONTINUE TO MONITOR CLOSE
[2020-07-16] MEDS: MULTIVIT W/MINERALS 1 TAB TABLET GT SCH (08:38)
[2020-07-16] MEDS: LACTOBACILLUS RHAMNOSUS GG 1 EACH CAP.SPRINK GT SCH (08:38)
[2020-07-16] MEDS: ASCORBIC ACID 500 MG TABLET GT SCH (08:39)
[2020-07-16] MEDS: AMIODARONE HCL 200 MG TABLET GT SCH (08:39)
[2020-07-16] MEDS: DAKINS QUARTER STRENGTH (0.125%) 480 ML BOTTLE TOP SCH (08:40)
[2020-07-16] MEDS: PROSOURCE / PROSTAT (PYXIS) 30 ML UDC GT SCH ×3 (08:40→17:28)
[2020-07-16 08:46] LABS: CALCIUM, SERUM 8.8 mg/dL (8.5-10.1); CREATININE 0.7 mg/dL (0.6-1.3); POTASSIUM 2.9 mmol/L (3.5-5.1)
[2020-07-16] MEDS ORDERED: FUROSEMIDE 40 MG/4 ML VIAL IV SCH (09:00)
[2020-07-16] MEDS ORDERED: SILVER NITRATE APPLICATOR 1 EA BOX TP ONE (09:30)
[2020-07-16] MEDS: HYDROCODONE/APAP 5/325MG TABLET PO PRN (10:35)
--- NOTE | 2020-07-16 11:30 | NUR ---
COMPLETED THORACENTESIS PROCEDURE WITH STABLE V/S. OBTAINED 1.3 LITERS PLEURAL FLUID. WILL MONITOR.CALLED LAB FOR THE BLOOD TRANSFUSION [facility] IF ITS READY,LAB STATED THAT THEY STILL HAVE TO DO TYPE AND SCREEN.
--- NOTE | 2020-07-16 14:00 | NUR ---
CALLED DR DUMONT'S OFFICE TWICE AND PAGED HIM SINCE AM.AWAITING TO RETURN CALL.
[2020-07-16] MEDS: SOD FERRIC GLUC 125 MG in IV NS 0.9% 100 ML IV SCH (14:26)
[2020-07-16] MEDS: VITAL AF 1.2 1,000 ML BOTTLE GT PRN (14:40)
--- NOTE | 2020-07-16 16:18 | NUR ---
TRIED TO SCAN THE BLOOD FOR VERIFICATION WITH CO RN BUT UNABLE TO VERIFY, [facility] VERIFICATION SECTION WAS GREYED OUT UNDER THE TRANSFUSION TAB. CALLED MICHELLE IN BLOOD BANK AND MENTIONED THE ISSUE. SHE STATED TO DOCUMENT ON THE TRANSFUSION PAPER (FAXED BACK TO ME FROM LAB). NOTIFIED CHARGE NURSE, DEREJE AND MADE AWARE.
--- NOTE | 2020-07-16 16:21 | NUR ---
BLOOD TRANSFUSION NOTE PRE-TRANSFUSION VITAL SIGNS: BP: 111/63 P: 72 O2: 98% T: 98.7 R: 18 WILL MONITOR FOR ADVERSE REACTIONS
[2020-07-16] MEDS: POTASSIUM CHLORIDE 20 MEQ POWDER PACKET GT SCH ×3 (16:36→18:03)
--- NOTE | 2020-07-16 16:45 | NUR ---
BLOOD TRANSFUSION NOTE ONGOING BLOOD TRANSFUSION, NO ADVERSE REACTIONS. STABLE VITAL SIGNS.
[2020-07-16] MEDS ORDERED: ENOXAPARIN SODIUM 40 MG/0.4 ML DISP.SYRIN SQ SCH (18:00)
--- NOTE | 2020-07-16 18:17 | NUR ---
MS RN NOTE HELD LOVENOX DUE TO HEMATURIA. HELD ZOSYN IV DUE TO ONGOING BLOOD TRANSFUSION. WILL ENDORSE TO PLATE MOLDER.
[2020-07-16] MEDS: INSULIN REGULAR, HUMAN 100 UNIT/ML 3 ML VIAL SQ PRN (18:37)
--- NOTE | 2020-07-16 18:47 | NUR ---
GROUND CREW LINES PERSON CLOSING NOTES PATIENT IN BED RESTING, A/O X3, ON MECHANICAL VENT WITH TRACH, TOLERATING SETTINGS WELL, NO SOB/RESP DISTRESS NOTED, GT IN PLACE, G-TUBE FEEDING CURRENTLY STOPPED, BLOOD TRANSFUSING CURRENTLY. GARG CATH IN PLACED, DRAINING TO GRAVITY, CONTINUE WITH HEMATURIA, DR VILLA AWARE. UROLOGIST CONSULT ORDERED. DEBRIDEMENT OF SACRAL WOUND DONE TODAY, CULTURE SENT TO LAB. BED LOCKED IN LOWEST POSITION, SIDE RAILS UP X2, CALL LIGHT WITHIN REACH, WILL ENDORSE CONTINUITY OF CARE TO ONCOMING NURSE.
--- NOTE | 2020-07-16 19:00 | NUR ---
COMPLETED BLOOD TRANSFUSION WITH NO ADVERSE REACTION. STABLE V/S. PT DENIES ANY PAIN OR DISTRESS NOTED. CALL LIGHT PLACED WITHIN REACH.
[2020-07-16] MEDS: ATORVASTATIN 40 MG TABLET GT SCH (22:14)
[2020-07-16] MEDS: MIRTAZAPINE 15 MG TABLET GT SCH (22:14)
[2020-07-16] MEDS: INSULIN GLARGINE, 100 UNIT/ML CARTRIDGE SQ SCH (23:12)
[2020-07-17] MEDS: ZOLPIDEM TARTRATE 5 MG TABLET GT PRN ×2 (00:23→21:15)
[2020-07-17] MEDS: VANCOMYCIN HCL 125 MG/2.5 ML ORAL.SUSP GT SCH ×4 (00:23→17:27)
[2020-07-17] MEDS: ZOSYN IVPB 3.375 G in IV D5W 50ml IV SCH ×4 (00:23→17:55)
[2020-07-17] MEDS: HYDROCODONE/APAP 5/325MG TABLET PO PRN ×3 (02:09→17:28)
[2020-07-17 03:57] VITALS: BP 111/67
[2020-07-17 06:16] LABS: CREATININE 0.7 mg/dL (0.6-1.3); POTASSIUM 3.3 mmol/L (3.5-5.1)
[2020-07-17 06:24] LABS: BASOPHILS # (AUTO) 0.1 /CMM (0.0-0.2); BASOPHILS % (AUTO) 0.8 % (0.0-2.0); EOSINOPHILS % (AUTO) 5.1 % (0.0-6.0); HEMATOCRIT 29 % (39-51); HEMOGLOBIN 9.5 g/dL (13.5-17.5); LYMPHOCYTES # (AUTO) 1.5 /CMM (0.8-4.8); MEAN CORPUSCULAR HGB CONC 33 g/dl (31.0-36.0); MEAN CORPUSCULAR VOLUME 89 fL (80-96); MONOCYTES # (AUTO) 0.7 /CMM (0.1-1.30); MONOCYTES % (AUTO) 8.2 % (2.0-12.0); NEUTROPHILS # (AUTO) 5.3 /CMM (1.8-8.9); NEUTROPHILS % (AUTO) 66.9 % (43.0-81.0); PLATELET COUNT (AUTO) 219 /CMM (150-450); RED BLOOD CELL COUNT(AUTO) 3.25 MIL/uL (4.5-6.0)
[2020-07-17] MEDS: INSULIN REGULAR, HUMAN 100 UNIT/ML 3 ML VIAL SQ PRN ×3 (06:25→17:43)
[2020-07-17] MEDS: BLOOD SUGAR DIAGNOSTIC 1 EACH STRIP IN SCH ×4 (06:31→17:28)
[2020-07-17 08:00] VITALS: BP 125/77
--- NOTE | 2020-07-17 08:00 | NUR ---
GLASS HANDLER OPENING NOTES PT IN BED, AWAKE, A/O X3, MOUTHS WORDS, ON MECHANICAL VENT WITH TRACH, TOLERATING SETTINGS WELL, SP02 97%, NO SOB/RESP DISTRESS NOTE. JULIO PICC LINE SL, FLUSHED X2 EACH PIGTAIL, ALL PATENT WITH NO SIGNS OF INFECTION. G-TUBE FEEDING RUNNING AT 65 ML/HR, POSITIVE PLACEMENT CHECKED. GARG CATH DRAINING TO GRAVITY, HEMATURIA NOTED, DR VILLA AWARE. PT FLEXISEAL INTACT AND DRAINING FECES TO GRAVITY. ALL SAFETY PRECAUTIONS IN PLACE. WILL CONTINUE TO MONITOR CLOSELY.
[2020-07-17] MEDS: FUROSEMIDE 40 MG TABLET GT SCH (08:22)
[2020-07-17] MEDS: ASCORBIC ACID 500 MG TABLET GT SCH (08:22)
[2020-07-17] MEDS: MULTIVIT W/MINERALS 1 TAB TABLET GT SCH (08:22)
[2020-07-17] MEDS: PROSOURCE / PROSTAT (PYXIS) 30 ML UDC GT SCH ×3 (08:22→17:28)
[2020-07-17] MEDS: LACTOBACILLUS RHAMNOSUS GG 1 EACH CAP.SPRINK GT SCH (08:22)
[2020-07-17] MEDS: AMIODARONE HCL 200 MG TABLET GT SCH (08:22)
[2020-07-17] MEDS: DAKINS QUARTER STRENGTH (0.125%) 480 ML BOTTLE TOP SCH (08:23)
[2020-07-17] MEDS: APIXABAN 2.5 MG TABLET GT SCH ×2 (09:30→16:41)
--- NOTE | 2020-07-17 09:40 | NUR ---
WATER SOFTENER INSTALLER NOTE DID NOT GIVE ELIQUIS DUE TO HEMATURIA.
--- NOTE | 2020-07-17 09:59 | NUR ---
CALLED DR DUMONT'S OFFICE FOR UROLOGY CONSULT AND AWAITING FOR CONSULT SINCE YESTERDAY.CALLED DR DUMONT'S OFFICE TWICE YESTERDAY BUT STILL HASN'T RETURNED CALL,DR VILLA AWARE.
[2020-07-17] MEDS: clonazePAM 1 MG TABLET GT PRN (11:01)
--- NOTE | 2020-07-17 11:10 | NUR ---
RESPIRATORY NOTE PLACED PT BACK ON PREVIOUS SETTINGS, DUE TO INCREASED WORK OF BREATHING. KD SCHRADER NOTIFIED. PT JOSEPH WELL. WILL CONTINUE TO MONITOR. Addendum: 07/17/20 at 1112 by ABRAHAM GERARDO RT Amended: Links added.
--- NOTE | 2020-07-17 11:10 | NUR ---
ADJUSTMENTS WERE MADE ON THE VENT SETTINGS BY Mireya PER DR VILLA TO TITRATE PT'S VENT SETTINGS.PT WASN'T ABLE TO TOLERATE IT AND WAS C/O SEVERE DISTRESS AND HR 144 O2 SAT 94% WITH THE TITRATED VENT SETTINGS.PAGED Mireya AND NOTIFIED DR VILLA WITH ORDERS TO PUT PT BACK TO PREVIOUS VENT SETTINGS.ALSO NOTIFIED DR VILLA FOR PT'S LOW K+ 3.3 LEVEL WITH ORDERS TO REPLACE IT TO GIVE KCL 80 MEQ GT ONE TIME AND CARRIED OUT.
--- NOTE | 2020-07-17 11:12 | NUR ---
MRI MANAGER NOTE NOTED ANXIETY AND GENERALIZED PAIN THROUGHOUT BODY DUE TO NOT TOLERATING NEW VENT SETTINGS. GAVE PT. CLONOPIN AND NORCO. WILL CONTINUE TO MONITOR.
[2020-07-17] MEDS ORDERED: POTASSIUM CHLORIDE 20 MEQ POWDER PACKET GT SCH (11:30)
--- NOTE | 2020-07-17 11:33 | NUR ---
PT IS ON RESPIRATORY DISTRESS.DR BUENROSTRO AWARE WITH ORDERS FOR R.T TO DO ASSIST CONTROL VENT SETTINGS,STAT ABG AND CXR.NOTIFIED R.T STAT.
[2020-07-17 12:00] VITALS: BP 111/69
[2020-07-17] MEDS: POTASSIUM CHLORIDE 20 MEQ POWDER PACKET GT SCH ×2 (12:04→12:36)
[2020-07-17 13:25] LABS: ABG BASE EXCESS 2.7 mmol/L; ABG OXYGEN SATURATION 89.6 % (92.0-98.5); ABG PCO2 67.3 mmHg (35.0-45.0); ABG PO2 67.7 mmHg (75.0-100.0); AaDO2 140.1 mmHg; COHb 0.3 % (0.5-1.5); MetHb 0.2 % (0.0-1.5); O2Hb 89.2 % (94.0-97.0); SITE, ABG Right Radial; VENT MODE, BG AC 14 500 40% +5
[2020-07-17] MEDS: SOD FERRIC GLUC 125 MG in IV NS 0.9% 100 ML IV SCH (14:13)
[2020-07-17] MEDS: ALBUTEROL HALF STRENGTH 1.25 MG/3 ML VIAL.NEB NEB SCH ×3 (14:25→23:18)
[2020-07-17] MEDS: methylPREDNISolone SOD SUCC 125 MG/2ML VIAL IV SCH ×2 (14:38→21:15)
[2020-07-17 15:30] LABS: ABG BASE EXCESS 5.6 mmol/L; ABG PH 7.461 (7.350-7.450); ABG PO2 67.5 mmHg (75.0-100.0); AaDO2 168.3 mmHg; COHb 0.1 % (0.5-1.5); MetHb 0.1 % (0.0-1.5); O2Hb 92.8 % (94.0-97.0); SITE, ABG Right Radial; VENT MODE, BG AC 20 550 40% + 5
[2020-07-17] MEDS: IPRATROPIUM NEB FS 0.5 MG/2.5 ML AMPUL.NEB NEB SCH ×3 (15:30→23:18)
[2020-07-17 16:00] VITALS: BP 93/76
--- NOTE | 2020-07-17 16:41 | NUR ---
BOOKBINDING MACHINE OPERATOR NOTE DID NOT ADMINISTER ELIQUIS DUE TO HEMATURIA.
[2020-07-17] MEDS: VITAL AF 1.2 1,000 ML BOTTLE GT PRN (18:27)
--- NOTE | 2020-07-17 18:42 | NUR ---
CUSTODIAN CLOSING NOTES PATIENT IN BED RESTING, A/O X3, ON MECHANICAL VENT WITH TRACH, TOLERATING SETTINGS WELL, NO SOB/RESP DISTRESS NOTED, GT IN PLACE, G-TUBE FEEDING @ 65ML/HR. GARG CATH IN PLACE, DRAINING TO GRAVITY, CONTINUOUS WITH HEMATURIA, DR VILLA AWARE. UROLOGIST CONSULT ORDERED. FLEXISEAL CHANGED TODAY @ 1400. SACRAL WOUND DRESSING CHANGED. PT IS COMFORTABLE. BED LOCKED IN LOWEST POSITION, SIDE RAILS UP X2, CALL LIGHT WITHIN REACH, WILL ENDORSE CONTINUITY OF CARE TO ONCOMING NURSE.
--- NOTE | 2020-07-17 19:00 | NUR ---
Urologist in to see patient at bedside. Patient stapleton changed and irrigated by doctor. Patient tolerted well and will continue care plan as followed.
[2020-07-17 20:24] VITALS: BP 103/67
[2020-07-17] MEDS: MIRTAZAPINE 15 MG TABLET GT SCH (21:15)
[2020-07-17] MEDS: ATORVASTATIN 40 MG TABLET GT SCH (21:15)
[2020-07-17] MEDS: INSULIN GLARGINE, 100 UNIT/ML CARTRIDGE SQ SCH (21:44)
[2020-07-18 00:19] VITALS: BP 122/60
[2020-07-18] MEDS: INSULIN REGULAR, HUMAN 100 UNIT/ML 3 ML VIAL SQ PRN ×3 (02:47→12:01)
[2020-07-18] MEDS: ZOSYN IVPB 3.375 G in IV D5W 50ml IV SCH ×3 (02:49→12:05)
[2020-07-18] MEDS: VANCOMYCIN HCL 125 MG/2.5 ML ORAL.SUSP GT SCH ×3 (02:49→12:12)
[2020-07-18] MEDS: ALBUTEROL HALF STRENGTH 1.25 MG/3 ML VIAL.NEB NEB SCH ×3 (03:44→11:01)
[2020-07-18] MEDS: IPRATROPIUM NEB FS 0.5 MG/2.5 ML AMPUL.NEB NEB SCH ×3 (03:44→11:01)
[2020-07-18 04:10] VITALS: BP 118/59
--- NOTE | 2020-07-18 05:37 | NUR ---
PATIENT RECEIVED ON TRACH TO VENT WITH SETTINGS OF AC 20, 550 Vt, 50%, +5. SUCTIONED FOR MINIMAL, THIN, WHITE SECRETIONS. GIVEN IN-LINE TREATMENTS WITH NO ADVERSE REACTIONS. AMBU BAG AT BEDSIDE. VENT AND PULSE OXIMETER ALARMS AUDIBLE AND VISIBLE. NO DISTRESS/SOB NOTED. Addendum: 07/18/20 at 0538 by ELIEZER CHARLES RT Amended: Links added.
[2020-07-18 05:59] LABS: BASOPHILS % (AUTO) 0.1 % (0.0-2.0); HEMATOCRIT 27 % (39-51); HEMOGLOBIN 8.8 g/dL (13.5-17.5); LYMPHOCYTES # (AUTO) 0.8 /CMM (0.8-4.8); MEAN CORPUSCULAR HGB CONC 33 g/dl (31.0-36.0); MEAN CORPUSCULAR VOLUME 89 fL (80-96); MONOCYTES # (AUTO) 0.2 /CMM (0.1-1.30); MONOCYTES % (AUTO) 3.1 % (2.0-12.0); NEUTROPHILS # (AUTO) 6.2 /CMM (1.8-8.9); NEUTROPHILS % (AUTO) 85.8 % (43.0-81.0); PLATELET COUNT (AUTO) 219 /CMM (150-450); WHITE BLOOD COUNT (AUTO) 7.2 K/uL (4.3-11.0)
[2020-07-18] MEDS: methylPREDNISolone SOD SUCC 125 MG/2ML VIAL IV SCH (06:07)
[2020-07-18 06:49] LABS: CREATININE 0.8 mg/dL (0.6-1.3); POTASSIUM 3.7 mmol/L (3.5-5.1)
--- NOTE | 2020-07-18 07:48 | NUR ---
TELE/RN OPENING NOTES RECEIVED PATIENT ON BED SLEEPING EASILY AWAKE BY NAME AND LIGHT TOUCH. PATIENT IS ON TRACH AND VENT DEPENDENT WITH PRESCRIBED SETTINGS. PATIENT IN NO APPARENT RESPIRATORY DISTRESS NOTED. NO SIGN AND SYMPTOM OF PAIN NOTED AT THIS TIME. TELE MONITOR READING AFIB 74 BPM WITH BBB. WILL CONTINUE TO MONITOR.
[2020-07-18 08:00] VITALS: BP 113/66
[2020-07-18] MEDS: LACTOBACILLUS RHAMNOSUS GG 1 EACH CAP.SPRINK GT SCH (08:56)
[2020-07-18 08:57] VITALS: BP 113/66
[2020-07-18] MEDS: MULTIVIT W/MINERALS 1 TAB TABLET GT SCH (08:57)
[2020-07-18] MEDS: ASCORBIC ACID 500 MG TABLET GT SCH (08:57)
[2020-07-18] MEDS: AMIODARONE HCL 200 MG TABLET GT SCH (08:57)
[2020-07-18] MEDS: FUROSEMIDE 40 MG TABLET GT SCH (08:58)
[2020-07-18] MEDS: PROSOURCE / PROSTAT (PYXIS) 30 ML UDC GT SCH ×2 (08:59→12:12)
[2020-07-18] MEDS: DAKINS QUARTER STRENGTH (0.125%) 480 ML BOTTLE TOP SCH (09:03)
[2020-07-18] MEDS ORDERED: VANC125C11 GT (09:04)
[2020-07-18] MEDS ORDERED: AMIO200T7 GT (09:04)
[2020-07-18] MEDS ORDERED: MIRT-121 GT (09:04)
[2020-07-18] MEDS ORDERED: CIPR-262 PO (09:10)
[2020-07-18] MEDS ORDERED: ENOX40DI SQ (09:10)
[2020-07-18] MEDS ORDERED: FERR325T23 PO (09:10)
[2020-07-18] MEDS ORDERED: AMOX-427 PO (09:25)
[2020-07-18] MEDS ORDERED: ENOXAPARIN SODIUM 40 MG/0.4 ML DISP.SYRIN SQ SCH (09:30)
--- NOTE | 2020-07-18 10:07 | NUR ---
RN NOTES LOVENOX 40MG SUBCUTANEOUS IS NOT ADMINISTERED. PATIENT WITH HEMATURIA.
--- NOTE | 2020-07-18 10:17 | NUR ---
TELE/RN NOTES BP 113/66 P 75 AMIODARONE 200MG 1 TAB GT WAS NOT ADMINISTERED. WILL CONTINUE TO MONITOR.
[2020-07-18] MEDS: BLOOD SUGAR DIAGNOSTIC 1 EACH STRIP IN SCH (12:03)
[2020-07-18] MEDS: SOD FERRIC GLUC 125 MG in IV NS 0.9% 100 ML IV SCH (13:20)
--- NOTE | 2020-07-18 14:50 | NUR ---
RN NOTES PERSONAL CELLPHONE WAS GIVEN TO THE PATIENT RN AND 2 EMT WAS AWARE.
--- NOTE | 2020-07-18 14:53 | NUR ---
RN NOTES PATIENT IS ALERT AND ORIENTED X3. PATIENT IN TRACH AND VENT DEPENDENT AT THE PRESCRIBED SETTINGS. PATIENT IN NO APPARENT RESPIRATORY DISTRESS NOTED. NO COMPLAINED OF NOTED. GIVE REPORT TO CORAL YI AT [facility] ([phone]. PATIENT REFUSED TO TAKE DISCHARGE WOUND PHOTO EXPLAINED THE RISK AND BENEFITS PATIENTS STILL REFUSING. PATIENT LEFT IN MEDICALLY STABLE CONDITION IN SERVICE EDUCATION TEACHER BY 2 EMT AND 1 RN VIA AMBULANCE.
[2020-07-18] MEDS ORDERED: FERROUS SULFATE (325 MG) 325 MG/TAB TABLET GT SCH (17:00)
[2020-07-18] MEDS ORDERED: CIPROFLOXACIN HCL 250 MG TABLET GT SCH (21:00)
[2020-07-18] MEDS ORDERED: INSULIN GLARGINE, 100 UNIT/ML CARTRIDGE SQ SCH (22:00)
[2020-07-19] MEDS ORDERED: predniSONE 20 MG TABLET PO SCH (09:00)
== END 2020-07-18 15:00 | DRG 853 ==
LOC: ER 05:08 → TELE1 09:49 → TELE 07-16 05:31
PROVIDERS: ADMIT Internal Medicine; ATTEND Internal Medicine
PROC: 5A1955Z Respiratory Ventilation, Greater than 96 Consecutive Hours (ICD-10-PCS; principal; 2020-07-11)
PROC: 30233N1 Transfusion of Nonautologous Red Blood Cells into Peripheral Vein, Percutaneous Approach (ICD-10-PCS; 2020-07-13)
PROC: 0KBP0ZZ Excision of Left Hip Muscle, Open Approach (ICD-10-PCS; 2020-07-16)
PROC: 0KBN0ZZ Excision of Right Hip Muscle, Open Approach (ICD-10-PCS; 2020-07-16)
PROC: 0W993ZZ Drainage of Right Pleural Cavity, Percutaneous Approach (ICD-10-PCS; 2020-07-16)
DX: A41.9 Sepsis, unspecified organism (principal); J96.20 Acute and chronic respiratory failure, unspecified whether with hypoxia or hypercapnia; L89.154 Pressure ulcer of sacral region, stage 4; J18.9 Pneumonia, unspecified organism; J96.22 Acute and chronic respiratory failure with hypercapnia; I26.99 Other pulmonary embolism without acute cor pulmonale; I71.00 Dissection of unspecified site of aorta; I13.0 Hypertensive heart and chronic kidney disease with heart failure and stage 1 through stage 4 chronic kidney disease, or unspecified chronic kidney disease; Z99.11 Dependence on respirator [ventilator] status; I48.20 Chronic atrial fibrillation, unspecified; A04.72 Enterocolitis due to Clostridium difficile, not specified as recurrent; D68.69 Other thrombophilia; J90 Pleural effusion, not elsewhere classified; N18.9 Chronic kidney disease, unspecified; I25.10 Atherosclerotic heart disease of native coronary artery without angina pectoris; I50.9 Heart failure, unspecified; E11.22 Type 2 diabetes mellitus with diabetic chronic kidney disease; E78.5 Hyperlipidemia, unspecified; F32.9 Major depressive disorder, single episode, unspecified; Z86.16 Personal history of COVID-19; Z79.4 Long term (current) use of insulin; Z79.899 Other long term (current) drug therapy; Z87.01 Personal history of pneumonia (recurrent); Z95.1 Presence of aortocoronary bypass graft; Z79.01 Long term (current) use of anticoagulants; Z95.3 Presence of xenogenic heart valve; Z93.0 Tracheostomy status; R31.9 Hematuria, unspecified; Z93.1 Gastrostomy status; D64.9 Anemia, unspecified
CPT/HCPCS: 31720; 36415; 36600; 71045-TC; 76856-TC; 80048-TC; 80076-TC; 80202-TC; 81001; 82803-TC; 82962-TC; 83010; 83540-TC; 83605-TC; 83735-TC; 83880; 84100-TC; 84439-TC; 84443-TC; 84484-TC; 85025-TC; 85045-TC; 85730-TC; 86850-TC; 87040-TC; 87070-TC; 87081-TC; 87086-TC; 87186-TC; 88108-TC; 88305-TC; 88312-TC; 89051-TC; 93307-TC; 93970-TC; 94002-TC; 94003-TC; 94760-TC; 94762-TC; 94799-TC; 97110-TC; 97112-TC; 97530-TC; 99082-TC; A4623; A6253; A6403; A7526; C9803; G0378; J1650; J1815; J1940; J2405; J2543; J2916; J2930; J3370; J3480; J3490; J7030; J7050; J7060; P9016-BL; Q9967; U0003